=== PATIENT | female | born 1935 | race African-American/Black ===

== ENCOUNTER 2017-04-16 21:05 | Emergency (ER) | payer OTHER ==
[~2017-04-16] VITALS: Ht 162.6 cm; Wt 72.6 kg
[2017-04-16 22:19] LABS: BUN/Creatinine Ratio 36.8; Bilirubin, Total 0.4 mg/dL (0.2-1.0); Calcium 8.7 mg/dL (8.5-10.1); Potassium 3.6 mmol/L (3.5-5.1); Total Protein 7.1 g/dL (6.4-8.2)
[2017-04-16 22:26] LABS: Basophils # (auto) 0.1 uL; Basophils % (auto) 0.7 % (0.0-2.0); CONDITION Y; Eosinophils # (auto) 0.6 uL; Hematocrit 37.5 % (36.0-46.0); Hemoglobin 12.4 g/dL (12.2-16.2); Lymphocytes # (auto) 0.9 uL; Lymphocytes % (auto) 11.6 % (10.0-50.0); Mean Corpuscular Hemoglobin 29.3 pg (28.0-32.0); Mean Corpuscular Hgb Conc. 33.1 g/dL (32.0-36.0); Mean Corpuscular Volume 88.4 fL (80.0-100.0); Mean Platelet Volume 8.6 fL (7.4-10.4); Monocytes # (auto) 1.3 uL; Monocytes % (auto) 16.5 % (0.0-12.0); Neutrophils # (auto) 4.9 uL; Neutrophils % (auto) 63.2 % (37.0-80.0); Platelet Count (auto) 368 10^3/uL (140-450); Red Cell Distribution Width 13.4 % (11.6-16.0); White Blood Cell 7.8 10^3/uL (4.4-10.8)
[2017-04-17 00:05] LABS: Amylase 42 U/L (25-115)
[2017-04-17 01:21] LABS: B-Type Natriuretic Peptide 33.64 pg/mL (0-100); Temperature: 22.9 C (20.0-25.0)
[2017-04-17 03:43] VITALS: BP 127/83
== END 2017-04-17 04:05 | disposition home or self-care (01) ==
LOC: EDBD 21:05 → ER 21:08
DX: R41.82 Altered mental status, unspecified (principal); R55 Syncope and collapse; F03.90 Unspecified dementia, unspecified severity, without behavioral disturbance, psychotic disturbance, mood disturbance, and anxiety; Z86.73 Personal history of transient ischemic attack (TIA), and cerebral infarction without residual deficits; Z88.0 Allergy status to penicillin
CPT/HCPCS: 36415; 70450; 80053; 82150; 83605; 83690; 83880; 84484; 85025; 93005

== ENCOUNTER 2017-04-24 02:07 | Emergency (ER) | payer OTHER ==
[~2017-04-24] VITALS: Ht 175.3 cm; Wt 86.2 kg
[2017-04-24 02:40] LABS: Basophils # (auto) 0 uL; Basophils % (auto) 0.3 % (0.0-2.0); CONDITION Y; Eosinophils # (auto) 0.5 uL; Eosinophils % (auto) 4.6 % (0.0-7.0); Hematocrit 40.9 % (36.0-46.0); Hemoglobin 13.3 g/dL (12.2-16.2); Lymphocytes # (auto) 0.9 uL; Lymphocytes % (auto) 8.3 % (10.0-50.0); Mean Corpuscular Hemoglobin 29.1 pg (28.0-32.0); Mean Corpuscular Hgb Conc. 32.5 g/dL (32.0-36.0); Mean Corpuscular Volume 89.5 fL (80.0-100.0); Mean Platelet Volume 8.7 fL (7.4-10.4); Monocytes % (auto) 9.3 % (0.0-12.0); Neutrophils # (auto) 8.3 uL; Neutrophils % (auto) 77.5 % (37.0-80.0); Platelet Count (auto) 377 10^3/uL (140-450); Red Cell Distribution Width 13.4 % (11.6-16.0); White Blood Cell 10.7 10^3/uL (4.4-10.8)
[2017-04-24 02:59] LABS: Albumin 3.3 g/dL (3.4-5.0); Anion Gap 13 (5-15); Aspartate Aminotransferase 57 U/L (15-37); BUN/Creatinine Ratio 35.2; Blood Urea Nitrogen 43 mg/dL (7-18); Calcium 9.2 mg/dL (8.5-10.1); Carbon Dioxide 25 mmol/L (21-32); Chloride 108 mmol/L (98-107); GFR African American 54 mL/min; GFR Non-African American 45 mL/min; Glucose 120 mg/dL (74-106); Magnesium 2.2 mg/dL (1.6-2.6); Potassium 3.4 mmol/L (3.5-5.1); Sodium 146 mmol/L (136-145)
[2017-04-24 03:01] LABS: INR 1.03 (0.9-1.15); Prothrombin Time 11.2 sec (9.37-12.3)
[2017-04-24 03:04] LABS: Alkaline Phosphatase 123 U/L (45-117); Bilirubin, Total 0.4 mg/dL (0.2-1.0); Total Protein 8.4 g/dL (6.4-8.2)
[2017-04-24] MEDS ORDERED: cefTRIAXone 1GM/50ML D5W 50 ML IV ONE (03:30)
[2017-04-24] MEDS ORDERED: SODIUM CHLORIDE 0.9% 1,000 ML IV ONE ×2 (03:30→04:30)
[2017-04-24 03:50] LABS: Lactic Acid w/Reflex 2.2 mmol/L (0.4-2.0)
[2017-04-24 03:56] LABS: REFLEX LACTIC ACID YES OR NO YES
[2017-04-24 04:08] LABS: Urine Mucus FEW (None Seen); Urine RBC 15 /hpf (0 - 4); Urine WBC Clumps PRESENT /hpf (None Seen)
[2017-04-24 04:14] LABS: Urine Bilirubin Negative (Negative); Urine Color BIEGE (Yellow); Urine Glucose Normal (Normal); Urine Urobilinogen Normal (Negative)
[2017-04-24 04:15] LABS: Urine Blood 3+ /uL (Negative); Urine Ketone 2+ (Negative); Urine Nitrite 3+ (Negative)
[2017-04-24] MEDS ORDERED: LEVOFLOXACIN 750MG 150 ML IV ONE (04:30)
[2017-04-24] MEDS ORDERED: VANCOMYCIN 1GM/250ML D5W 250 ML IV ONE (04:30)
[2017-04-24 09:27] VITALS: BP 125/76
== END 2017-04-24 09:38 | disposition short-term general hospital (02) ==
LOC: ER 02:07 → EDBD 02:07 → ER 09:38
DX: G93.41 Metabolic encephalopathy (principal); N12 Tubulo-interstitial nephritis, not specified as acute or chronic; Z88.0 Allergy status to penicillin; I11.0 Hypertensive heart disease with heart failure; I50.9 Heart failure, unspecified; R41.82 Altered mental status, unspecified
CPT/HCPCS: 36415; 70450; 71010; 73501; 80053; 80307; 80320; 81001; 83605; 83735; 84484; 85025; 85610; 85730; 87040; 87086; 87088; 87186; 93005; 96365; 96366; 96367; 96368; 99285; J0696; J1956; J3370

== ENCOUNTER 2017-05-05 13:21 | Emergency (ER) | payer OTHER, MEDICAID ==
[~2017-05-05] VITALS: Ht 177.8 cm; Wt 72.6 kg
[2017-05-05 16:40] VITALS: BP 110/77
== END 2017-05-05 16:57 | disposition short-term general hospital (02) ==
LOC: ER 13:21
DX: K94.23 Gastrostomy malfunction (principal); I50.9 Heart failure, unspecified; I11.0 Hypertensive heart disease with heart failure; Z88.0 Allergy status to penicillin; Z86.73 Personal history of transient ischemic attack (TIA), and cerebral infarction without residual deficits
CPT/HCPCS: 43760

== ENCOUNTER 2017-08-28 10:10 | Emergency (ER) | payer MEDICAID, OTHER ==
[~2017-08-28] VITALS: Ht 172.7 cm; Wt 68.0 kg
[2017-08-28 11:19] LABS: Basophils # (auto) 0 uL; Basophils % (auto) 0.5 % (0.0-2.0); Eosinophils # (auto) 0.3 uL; Eosinophils % (auto) 4.4 % (0.0-7.0); Hematocrit 39.7 % (36.0-46.0); Hemoglobin 13.2 g/dL (12.2-16.2); Lymphocytes % (auto) 16.8 % (10.0-50.0); Mean Corpuscular Hemoglobin 29.4 pg (28.0-32.0); Mean Corpuscular Hgb Conc. 33.2 g/dL (32.0-36.0); Mean Corpuscular Volume 88.5 fL (80.0-100.0); Monocytes # (auto) 0.7 uL; Monocytes % (auto) 12.2 % (0.0-12.0); Neutrophils % (auto) 66.1 % (37.0-80.0); Nucleated Red Blood Cells % 0.1 %; Platelet Count (auto) 288 10^3/uL (140-450); Red Blood Cells 4.49 10^6/uL (4.0-5.20); Red Cell Distribution Width 13.6 % (11.8-14.3)
[2017-08-28 11:42] LABS: Alanine Aminotransferase 33 U/L (13-56); Alkaline Phosphatase 167 U/L (45-117); Anion Gap 9 (5-15); Aspartate Aminotransferase 16 U/L (15-37); BUN/Creatinine Ratio 41.9; Bilirubin, Total 0.3 mg/dL (0.2-1.0); Blood Urea Nitrogen 36 mg/dL (7-18); Calcium 8.9 mg/dL (8.5-10.1); Carbon Dioxide 28 mmol/L (21-32); Chloride 101 mmol/L (98-107); GFR African American 81 mL/min; GFR Non-African American 67 mL/min; Glucose 86 mg/dL (74-106); Potassium 3.9 mmol/L (3.5-5.1); Sodium 138 mmol/L (136-145); Total Protein 7.5 g/dL (6.4-8.2)
[2017-08-28] MEDS ORDERED: SODIUM CHLORIDE 0.9% 1,000 ML IV ONE (11:54)
[2017-08-28] MEDS ORDERED: cefTRIAXone 1GM/50ML D5W 50 ML IV ONE ×2 (15:30)
[2017-08-28 17:01] VITALS: BP 128/67
== END 2017-08-28 20:55 | disposition home or self-care (01) ==
LOC: ER 10:10 → EDBD 10:10 → ER 20:55
DX: R07.89 Other chest pain (principal); N39.0 Urinary tract infection, site not specified; I69.920 Aphasia following unspecified cerebrovascular disease; G40.909 Epilepsy, unspecified, not intractable, without status epilepticus; I50.9 Heart failure, unspecified; I11.0 Hypertensive heart disease with heart failure; F03.90 Unspecified dementia, unspecified severity, without behavioral disturbance, psychotic disturbance, mood disturbance, and anxiety; Z88.0 Allergy status to penicillin; Z98.2 Presence of cerebrospinal fluid drainage device; Z93.1 Gastrostomy status
CPT/HCPCS: 36415; 71010; 80053; 80185; 81002; 83735; 84443; 84484; 85025; 93005; 94761; 96365; 96366; 99285; J0696; J7030

== ENCOUNTER 2017-09-27 13:59 | Emergency (ER) | payer OTHER ==
[~2017-09-27] VITALS: Ht 170.2 cm; Wt 61.2 kg
[2017-09-27 15:39] LABS: Basophils # (auto) 0 uL; Basophils % (auto) 0.6 % (0.0-2.0); Eosinophils # (auto) 0.4 uL; Eosinophils % (auto) 5.6 % (0.0-7.0); Hematocrit 42.7 % (36.0-46.0); Hemoglobin 14.2 g/dL (12.2-16.2); Lymphocytes # (auto) 1.3 uL; Lymphocytes % (auto) 18.7 % (10.0-50.0); Mean Corpuscular Hemoglobin 28.9 pg (28.0-32.0); Mean Corpuscular Hgb Conc. 33.2 g/dL (32.0-36.0); Monocytes % (auto) 15.3 % (0.0-12.0); Neutrophils % (auto) 59.8 % (37.0-80.0); Nucleated Red Blood Cells % 0.1 %; Platelet Count (auto) 253 10^3/uL (140-450); Red Blood Cells 4.91 10^6/uL (4.0-5.20); Red Cell Distribution Width 13.2 % (11.8-14.3); White Blood Cell 6.7 10^3/uL (4.4-10.8)
[2017-09-27 15:48] LABS: Albumin 3.2 g/dL (3.4-5.0); BUN/Creatinine Ratio 48.4; Bilirubin, Total 0.4 mg/dL (0.2-1.0); Calcium 9.2 mg/dL (8.5-10.1); Potassium 3.5 mmol/L (3.5-5.1); Total Protein 7.9 g/dL (6.4-8.2)
[2017-09-27] MEDS ORDERED: AZITHROMYCIN 500MG/ 250ML 250 ML IV ONE (16:45)
[2017-09-27] MEDS ORDERED: CLINDAMYCIN 600MG IV 50 ML IV ONE (16:45)
[2017-09-27] MEDS ORDERED: MEROPENEM 500MG IVPB 50 ML IV ONE (21:00)
[2017-09-27 22:20] VITALS: BP 105/59
[2017-09-28] MEDS ORDERED: LEVE250T18 PO (23:52)
[2017-09-28] MEDS ORDERED: PHE100C PO (23:52)
== END 2017-09-27 22:41 | disposition short-term general hospital (02) ==
LOC: ER 13:59 → EDBD 13:59 → ER 22:41
DX: T17.920A Food in respiratory tract, part unspecified causing asphyxiation, initial encounter (principal); I11.0 Hypertensive heart disease with heart failure; I50.9 Heart failure, unspecified; F03.90 Unspecified dementia, unspecified severity, without behavioral disturbance, psychotic disturbance, mood disturbance, and anxiety; X58.XXXA Exposure to other specified factors, initial encounter; Y93.89 Activity, other specified; Y92.89 Other specified places as the place of occurrence of the external cause; Y99.8 Other external cause status; Z86.73 Personal history of transient ischemic attack (TIA), and cerebral infarction without residual deficits; Z90.49 Acquired absence of other specified parts of digestive tract
CPT/HCPCS: 36415; 70360; 71020; 80053; 85025; 93005; 96365; 96366; 96368; 99285; J0456; J2185; J3490; 96367

== ENCOUNTER 2017-09-28 07:46 | Inpatient (IN) | payer OTHER ==
[~2017-09-28] VITALS: Ht 170.2 cm; Wt 65.4 kg
[2017-09-28 11:56] LABS: Albumin 3.2 g/dL (3.4-5.0); Alkaline Phosphatase 131 U/L (45-117); Anion Gap 14 (5-15); Aspartate Aminotransferase 40 U/L (15-37); BUN/Creatinine Ratio 51.2; Bilirubin, Total 0.3 mg/dL (0.2-1.0); Blood Urea Nitrogen 43 mg/dL (7-18); Carbon Dioxide 27 mmol/L (21-32); Chloride 99 mmol/L (98-107); GFR African American 83 mL/min; GFR Non-African American 69 mL/min; Glucose 99 mg/dL (74-106); Potassium 3.5 mmol/L (3.5-5.1); Sodium 140 mmol/L (136-145); Total Protein 7.7 g/dL (6.4-8.2)
[2017-09-28 12:47] LABS: Basophils # (auto) 0 uL; Basophils % (auto) 0.7 % (0.0-2.0); Eosinophils # (auto) 0.3 uL; Eosinophils % (auto) 4.7 % (0.0-7.0); Hematocrit 42.9 % (36.0-46.0); Hemoglobin 13.9 g/dL (12.2-16.2); Lymphocytes # (auto) 0.9 uL; Lymphocytes % (auto) 13.7 % (10.0-50.0); Mean Corpuscular Hemoglobin 28.9 pg (28.0-32.0); Mean Corpuscular Hgb Conc. 32.5 g/dL (32.0-36.0); Mean Corpuscular Volume 89.1 fL (80.0-100.0); Monocytes # (auto) 0.8 uL; Monocytes % (auto) 12.1 % (0.0-12.0); Neutrophils # (auto) 4.6 uL; Neutrophils % (auto) 68.8 % (37.0-80.0); Platelet Count (auto) 304 10^3/uL (140-450); White Blood Cell 6.6 10^3/uL (4.4-10.8)
[2017-09-28 13:15] LABS: INR 0.99 (0.9-1.15); Partial Thromboplastin Time 27.3 sec (22.64-33.71); Prothrombin Time 10.8 sec (9.37-12.3)
[2017-09-28 13:23] LABS: B-Type Natriuretic Peptide 72.2 pg/mL (0-100)
[2017-09-28 13:24] LABS: Temperature: 21.7 C (20.0-25.0)
[2017-09-28 13:40] LABS: Calcium 9.7 mg/dL (8.5-10.1); Magnesium 2.8 mg/dL (1.6-2.6)
[2017-09-28 14:09] LABS: Allen Test Yes; Blood 02Sat 98.3 % (96-100); Blood COHb 0.3 % (0.5-1.5); Blood MetHb 0.3 % (0.0-1.5); HCO3 27.4 mmol/L (22-26.0); HHb 1.7 % (0.0-5.0); MODE NASAL CANNULA; O2Hb 97.7 % (94.0-97.0); PCO2 41.3 mmHg (35.0-45.0); PCO2(T) 41.3 mmHg (35.0-45.0); PO2 139.2 mmHg (80.0-100.0); PO2(T) 139.2 mmHg (80.0-100.0); Sample Type Arterial
[2017-09-28] MEDS ORDERED: cefTRIAXone 1GM/10ml IVPUSH 10 ML IV ONE ×2 (16:45→19:30)
[2017-09-28] MEDS ORDERED: MORPHINE SULF INJ 2 MG/ML SYRINGE 1ML IV PRN (17:45)
[2017-09-28] MEDS ORDERED: NITROGLYCERIN 0.4 MG SL TAB SL PRN (17:45)
[2017-09-28] MEDS ORDERED: D5W/SOD CHLO 0.9% 1,000 ML IV ONE (17:45)
[2017-09-28] MEDS ORDERED: ENOXAPARIN SOD 40 MG/0.4 ML SYRINGE SC SCH (18:00)
[2017-09-28 19:38] LABS: Urine Bilirubin Negative (Negative); Urine Blood 1+ /uL (Negative); Urine Color Yellow (Yellow); Urine Glucose Normal (Normal); Urine Ketone 2+ (Negative); Urine Nitrite Negative (Negative); Urine RBC 10 /hpf (0 - 4); Urine Squamous Epithelial Cell FEW /hpf (<5); Urine Urobilinogen Normal (Negative); Urine WBC Clumps PRESENT /hpf (None Seen); Urine pH 5.5 (5.0-8.0)
[2017-09-28 20:00] VITALS: BP 114/77
[2017-09-28] MEDS: SODIUM CHLORIDE 0.9% 1,000 ML IV SCH (21:13)
[2017-09-28 23:26] VITALS: BP 114/77
[2017-09-28] MEDS ORDERED: PHE100C PO (23:52)
[2017-09-28] MEDS ORDERED: LEVE250T18 PO (23:52)
[2017-09-29 05:36] VITALS: BP 102/54
[2017-09-29 06:29] LABS: Calcium 8.2 mg/dL (8.5-10.1); Magnesium 2.4 mg/dL (1.6-2.6); Phosphorus 2.4 mg/dL (2.5-4.90); Potassium 3.4 mmol/L (3.5-5.1)
[2017-09-29 08:41] LABS: Basophils # (auto) 0 uL; Basophils % (auto) 0.5 % (0.0-2.0); Eosinophils # (auto) 0.4 uL; Eosinophils % (auto) 5.9 % (0.0-7.0); Hematocrit 35.8 % (36.0-46.0); Hemoglobin 11.5 g/dL (12.2-16.2); Lymphocytes # (auto) 1.1 uL; Mean Corpuscular Hemoglobin 28.4 pg (28.0-32.0); Mean Corpuscular Hgb Conc. 32.1 g/dL (32.0-36.0); Mean Corpuscular Volume 88.3 fL (80.0-100.0); Mean Platelet Volume 8.6 fL (6.9-10.8); Monocytes % (auto) 14.3 % (0.0-12.0); Neutrophils # (auto) 4.6 uL; Neutrophils % (auto) 64.3 % (37.0-80.0); Nucleated Red Blood Cells % 0.2 %; Platelet Count (auto) 272 10^3/uL (140-450); White Blood Cell 7.2 10^3/uL (4.4-10.8)
[2017-09-29] MEDS ORDERED: cefTRIAXone 1GM/10ml IVPUSH 10 ML IV ONE (08:54)
[2017-09-29 09:16] VITALS: BP 94/58
[2017-09-29] MEDS ORDERED: CEFTRIAXONE IV SCH ×2 (10:00)
[2017-09-29] MEDS ORDERED: CEFTRIAXONE SODIUM 2 GM in D5W 5% 50 ML IV SCH (10:00)
[2017-09-29] MEDS ORDERED: POTASSIUM CHLORIDE 40 MEQ, LIDOCAINE 1% (LOCAL ANESTH.) 4 ML in SODIUM CHL 0.9% 250 ML IV ONE (12:30)
[2017-09-29] MEDS ORDERED: LEVETIRACETAM 500 MG/5ML ORAL SOLN UD PO ONE (12:45)
[2017-09-29] MEDS ORDERED: METOPROLOL TARTRATE 25 MG TAB PO ONE (12:45)
[2017-09-29] MEDS ORDERED: FAMOTIDINE 20 MG TAB PO ONE (12:45)
[2017-09-29 13:00] VITALS: BP 105/70
[2017-09-29] MEDS: SODIUM CHLORIDE 0.9% 1,000 ML IV SCH ×2 (13:45→22:31)
[2017-09-29] MEDS: ACETYLCYSTEINE 10 %(100MG/ML) SOL 4ML NEB SCH ×3 (14:00→22:23)
[2017-09-29] MEDS: ALBUTEROL SULF 2.5 MG/0.5ML(0.5%) NEB SOLN NEB SCH ×3 (14:00→22:23)
[2017-09-29] MEDS: QUEtiapine FUMARATE 25 MG TAB PO SCH ×2 (14:00→22:30)
[2017-09-29] MEDS: IPRATROPIUM BROM 0.5 MG/2.5ML INH SOL NEB SCH ×3 (14:00→22:24)
[2017-09-29] MEDS ORDERED: Diabetisource AC 1 Liter GT SCH (16:00)
[2017-09-29 17:26] VITALS: BP 100/69
[2017-09-29] MEDS ORDERED: ACETYLCYSTEINE 20%(200MG/ML) SOL 4ML ONE (18:19)
[2017-09-29 20:23] VITALS: BP 100/69
[2017-09-29 22:00] VITALS: BP 117/78
[2017-09-29] MEDS ORDERED: LEVETIRACETAM 500 MG/5ML ORAL SOLN UD PO SCH (22:00)
[2017-09-29] MEDS: PHENYTOIN 100 MG/4 ML SUSP GT SCH (22:29)
[2017-09-29] MEDS: METOPROLOL TARTRATE 25 MG TAB PO SCH (22:30)
[2017-09-29] MEDS: LEVETIRACETAM 500 MG/5ML ORAL SOLN UD PO SCH (22:30)
[2017-09-30] VITALS (8 sets, daily range): BP systolic 89–112; BP diastolic 53–74
[2017-09-30] MEDS: ACETYLCYSTEINE 10 %(100MG/ML) SOL 4ML NEB SCH ×6 (02:27→22:06)
[2017-09-30] MEDS: ALBUTEROL SULF 2.5 MG/0.5ML(0.5%) NEB SOLN NEB SCH ×6 (02:27→22:06)
[2017-09-30] MEDS: IPRATROPIUM BROM 0.5 MG/2.5ML INH SOL NEB SCH ×6 (02:27→22:06)
[2017-09-30 05:08] LABS: Basophils # (auto) 0 uL; Basophils % (auto) 0.7 % (0.0-2.0); Eosinophils # (auto) 0.3 uL; Eosinophils % (auto) 6.2 % (0.0-7.0); Hematocrit 33.8 % (36.0-46.0); Hemoglobin 11.1 g/dL (12.2-16.2); Lymphocytes # (auto) 1.2 uL; Lymphocytes % (auto) 20.9 % (10.0-50.0); Mean Corpuscular Hemoglobin 29.5 pg (28.0-32.0); Mean Corpuscular Hgb Conc. 32.7 g/dL (32.0-36.0); Mean Corpuscular Volume 90.3 fL (80.0-100.0); Monocytes # (auto) 0.9 uL; Monocytes % (auto) 15.2 % (0.0-12.0); Neutrophils # (auto) 3.2 uL; Nucleated Red Blood Cells % 0.1 %; Platelet Count (auto) 237 10^3/uL (140-450); Red Cell Distribution Width 13.3 % (11.8-14.3); White Blood Cell 5.6 10^3/uL (4.4-10.8)
[2017-09-30 05:26] LABS: BUN/Creatinine Ratio 41.5; Calcium 8.3 mg/dL (8.5-10.1); Magnesium 2.2 mg/dL (1.6-2.6); Potassium 4.1 mmol/L (3.5-5.1)
[2017-09-30 05:40] LABS: Phosphorus 2.4 mg/dL (2.5-4.90)
[2017-09-30] MEDS: QUEtiapine FUMARATE 25 MG TAB PO SCH ×3 (05:50→23:25)
[2017-09-30] MEDS ORDERED: CEFTRIAXONE SODIUM 2 GM in D5W 5% 50 ML IV SCH (10:00)
[2017-09-30] MEDS ORDERED: cefTRIAXone 1GM/10ml IVPUSH 10 ML IV ONE (10:00)
[2017-09-30] MEDS: METOPROLOL TARTRATE 25 MG TAB PO SCH ×2 (10:00→23:25)
[2017-09-30] MEDS ORDERED: FAMOTIDINE 20 MG TAB PO SCH (10:00)
[2017-09-30] MEDS: PHENYTOIN 100 MG/4 ML SUSP GT SCH ×2 (10:08→23:24)
[2017-09-30] MEDS: LEVETIRACETAM 500 MG/5ML ORAL SOLN UD PO SCH ×2 (10:08→23:24)
[2017-09-30] MEDS: SODIUM CHLORIDE 0.9% 1,000 ML IV SCH (10:53)
== END 2017-10-01 01:00 | disposition short-term general hospital (02) | DRG 871 ==
LOC: EDBD 07:46 → ER 07:46 → TELE 07:47 → TELE-CENTR 20:00
PROVIDERS: ADMIT Nurse Practitioner Acute Care; ATTEND Nurse Practitioner Acute Care
DX: A41.9 Sepsis, unspecified organism (principal); R53.2 Functional quadriplegia; J69.0 Pneumonitis due to inhalation of food and vomit; E44.0 Moderate protein-calorie malnutrition; I11.0 Hypertensive heart disease with heart failure; D68.59 Other primary thrombophilia; R13.10 Dysphagia, unspecified; T17.908A Unspecified foreign body in respiratory tract, part unspecified causing other injury, initial encounter; I50.9 Heart failure, unspecified; R47.01 Aphasia; N39.0 Urinary tract infection, site not specified; Z93.1 Gastrostomy status; R74.0 Nonspecific elevation of levels of transaminase and lactic acid dehydrogenase [LDH]; F41.9 Anxiety disorder, unspecified; G40.909 Epilepsy, unspecified, not intractable, without status epilepticus; R47.02 Dysphasia; X58.XXXA Exposure to other specified factors, initial encounter; Y93.89 Activity, other specified; Z82.3 Family history of stroke; Z82.49 Family history of ischemic heart disease and other diseases of the circulatory system; Z86.73 Personal history of transient ischemic attack (TIA), and cerebral infarction without residual deficits; Y92.89 Other specified places as the place of occurrence of the external cause; Y99.8 Other external cause status; Z68.22 Body mass index [BMI] 22.0-22.9, adult
CPT/HCPCS: 36415; 36600; 51702; 71010; 80048; 80053; 81001; 82805; 83735; 83880; 84100; 84443; 84484; 85025; 85379; 85610; 85730; 87081; 87086; 87088; 87186; 92610; 93005; 94640; 94668; 94761; 96365; 96367; 97163; J0696; J2001; J7042; J7060